=== PATIENT | male | born 1975 | race Caucasian/White ===

== ENCOUNTER 2016-08-24 14:37 | Emergency (ER) | payer MEDICAID ==
[~2016-08-24] VITALS: Ht 170.2 cm; Wt 87.3 kg
[2016-08-24] MEDS ORDERED: HYDROCODONE/ACETAMINOPHEN 10-325 MG TABLET PO ONE (15:00)
[2016-08-24] MEDS ORDERED: LIDOCAINE HCL BUFFERED 1% 20 ML VIAL INJ ONE (15:30)
[2016-08-24 16:51] VITALS: BP 138/88
== END 2016-08-24 16:53 | disposition home or self-care (01) ==
LOC: EMS 14:40
DX: S63.115A Dislocation of metacarpophalangeal joint of left thumb, initial encounter (principal); M13.842 Other specified arthritis, left hand; Z88.0 Allergy status to penicillin; W31.89XA Contact with other specified machinery, initial encounter; Y93.89 Activity, other specified; Y92.89 Other specified places as the place of occurrence of the external cause; Y99.8 Other external cause status
CPT/HCPCS: 26770; 73130; 99284; J3490